=== PATIENT | female | born 1950 | race Caucasian/White ===

== ENCOUNTER 2020-12-30 11:48 | Emergency (ER) | payer OTHER, MEDICAID ==
[~2020-12-30] VITALS: Ht 154.9 cm; Wt 71.6 kg
[2020-12-30 11:57] VITALS: BP 159/89
[2020-12-30] MEDS ORDERED: ONDANSETRON ODT 4 MG PO ONE (12:00)
[2020-12-30] MEDS ORDERED: KETOROLAC 30 MG/1 ML IM ONE ×2 (12:00→12:30)
[2020-12-30] MEDS ORDERED: HYDROcodone/APAP 5/325 TABLET PO ONE (12:00)
[2020-12-30] MEDS ORDERED: CYCLOBENZAPRINE 10 MG TABLET PO ONE (12:00)
[2020-12-30] MEDS ORDERED: PLEASE ENTER ALLERGIES MC SCH (12:30)
[2020-12-30] MEDS ORDERED: PLEASE ENTER HEIGHT AND WEIGHT MC SCH (12:30)
--- NOTE | 2020-12-30 13:50 | NUR ---
PT brought back from triage with chief complaint of right leg pain starting yesterday. PT denies trauma.
[2020-12-30] MEDS ORDERED: CYCLOBENZAPRINE 10 MG TABLET ONE (14:23)
[2020-12-30] MEDS ORDERED: KETOROLAC 30 MG/1 ML ONE (14:23)
[2020-12-30] MEDS ORDERED: HYDROcodone/APAP 5/325 TABLET ONE (14:23)
[2020-12-30] MEDS ORDERED: ONDANSETRON ODT 4 MG ONE (14:23)
--- NOTE | 2020-12-30 14:34 | NUR ---
ER TONY Grimaldo at beside for eval
--- NOTE | 2020-12-30 15:40 | NUR ---
dc INSTRUCTIONS REVIEWED
== END 2020-12-30 15:48 | disposition home or self-care (01) ==
LOC: ED 15:00
DX: M54.41 Lumbago with sciatica, right side (principal); G89.29 Other chronic pain; M16.11 Unilateral primary osteoarthritis, right hip; M79.661 Pain in right lower leg
CPT/HCPCS: 72110; 73502; 96372; 99284; J1885; Q0162